=== PATIENT | female | born 1955 | race Caucasian/White ===

== ENCOUNTER → 2018-04-28 | Outpatient (CLI) | payer OTHER ==
--- NOTE | 2018-04-28 12:01 | KCIC ---
Bone densitometry 04/28/2018 10:40 AM Indication: Osteopenia. History of chemotherapy.. Comparison Study: DEXA scan April 14, 2016 Discussion: Bone Densitometry was performed with dual photon absorption of the lumbar spine and proximal left femur Lumbar Spine: Bone average density is 0.990g/cm2 for L1-L4. T-Score is -0.5. (Prior T score -0.7) Proximal left femur: Bone average density is 0.907g/cm2. T-Score is -0.3. (Prior T score -0.5) IMPRESSION: No normal bone mineral density, grossly unchanged from prior study Note: Definitions established by the World Health Organization: Normal: T-score is -1.0 or above. Osteopenia: T-score is between -1.0 and -2.5. Osteoporosis: T-score is -2.5 or below. Electronically signed by: Hernán Mittal MD (04/28/2018 11:57 AM) [facility]
== END | disposition home or self-care (01) ==
LOC: KCIC DEXA 10:16
PROVIDERS: ATTEND Family Medicine
DX: M85.80 Other specified disorders of bone density and structure, unspecified site (principal); Z92.21 Personal history of antineoplastic chemotherapy; Z78.0 Asymptomatic menopausal state
CPT/HCPCS: 77080

== ENCOUNTER → 2019-07-11 | Outpatient (CLI) | payer OTHER ==
--- NOTE | 2019-07-11 11:18 | KCIC ---
MR of the left knee HISTORY: Prior meniscectomy. Medial knee pain since a fall last May. TECHNIQUE: Routine multiplanar sequences are obtained. FINDINGS: The medial meniscus is small and blunted. The remaining meniscal tissue is heterogeneous and distorted, compatible with degenerative tearing. Extrusion of the meniscus from the joint compartment. No evidence of lateral meniscal tear. Anterior and posterior cruciate ligaments are intact. Medial collateral ligament is intact. Iliotibial band unremarkable. Fibular collateral ligament, biceps femoris tendon and popliteus tendon are intact. Extensor mechanism is intact. No significant joint effusion. Chondromalacia of the patellofemoral joint, moderate to severe. Subchondral marrow edema at the femoral trochlea. Severe cartilage loss at the medial joint compartment. Mild degenerative changes at the lateral joint compartment. Subchondral marrow edema at the medial tibial plateau is likely of degenerative etiology. Mild stress reaction or small nondisplaced stress fracture is not excludable if of clinical concern. Otherwise no evidence of acute fracture. No evidence of aggressive bone destruction. Trace Michelle's cyst. IMPRESSION: 1. Medial meniscal degenerative tear. 2. Severe DJD and cartilage loss. Electronically signed by: Alexander Kasper MD (07/11/2019 11:15 AM) [id number]
== END | disposition home or self-care (01) ==
LOC: KCIC MRI 09:11
PROVIDERS: ATTEND Family Medicine
DX: S83.242A Other tear of medial meniscus, current injury, left knee, initial encounter (principal); M22.42 Chondromalacia patellae, left knee; M17.12 Unilateral primary osteoarthritis, left knee; X58.XXXA Exposure to other specified factors, initial encounter; Y93.89 Activity, other specified; Y92.89 Other specified places as the place of occurrence of the external cause; Y99.8 Other external cause status
CPT/HCPCS: 73721